=== PATIENT | female | born 1990 | race Two or more races ===

== ENCOUNTER 2016-07-27 01:48 | Emergency (ER) | payer MEDICAID ==
[~2016-07-27] VITALS: Ht 167.6 cm; Wt 99.8 kg
[2016-07-27 02:01] VITALS: BP 115/73
== END 2016-07-27 06:43 | disposition left against medical advice (07) ==
LOC: ER 01:51
DX: M79.605 Pain in left leg (principal); Z53.21 Procedure and treatment not carried out due to patient leaving prior to being seen by health care provider; W57.XXXA Bitten or stung by nonvenomous insect and other nonvenomous arthropods, initial encounter; Y93.89 Activity, other specified; Y99.8 Other external cause status; Y92.89 Other specified places as the place of occurrence of the external cause

== ENCOUNTER 2016-08-01 22:27 | Emergency (ER) | payer MEDICAID ==
[~2016-08-01] VITALS: Ht 167.6 cm; Wt 99.8 kg
[2016-08-01 22:53] VITALS: BP 122/75
[2016-08-02 01:27] LABS: Urine Bilirubin Negative (Negative); Urine Blood Negative /uL (Negative); Urine Ca Oxalate Crystal MOD (None Seen); Urine Color Yellow (Yellow); Urine Glucose Normal (Normal); Urine Ketone Negative (Negative); Urine Mucus FEW (None Seen); Urine Nitrite Negative (Negative); Urine RBC 1 /hpf (0 - 4); Urine Squamous Epithelial Cell MOD /hpf (<5)
== END 2016-08-02 03:08 | disposition left against medical advice (07) ==
LOC: ER 22:32
DX: M79.602 Pain in left arm (principal); Z53.21 Procedure and treatment not carried out due to patient leaving prior to being seen by health care provider
CPT/HCPCS: 81001; 81025

== ENCOUNTER 2017-01-29 12:16 | Emergency (ER) | payer MEDICAID ==
[~2017-01-29] VITALS: Ht 167.6 cm; Wt 104.3 kg
[2017-01-29 14:48] VITALS: BP 125/75
[2017-01-29 15:50] LABS: Urine Bacteria FEW /hpf (None Seen); Urine Blood Negative /uL (Negative); Urine Specific Gravity 1.013 (1.001-1.035); Urine Sperm PRESENT /hpf (None Seen); Urine WBC <1 /hpf (0 - 5)
== END 2017-01-29 17:27 | disposition home or self-care (01) ==
LOC: ER 12:16
DX: O26.891 Other specified pregnancy related conditions, first trimester (principal); R10.9 Unspecified abdominal pain; Z3A.01 Less than 8 weeks gestation of pregnancy
CPT/HCPCS: 36415; 76801; 81001; 84702

== ENCOUNTER 2023-09-21 19:19 | Inpatient (IN) | payer MEDICAID ==
[~2023-09-21] VITALS: Ht 167.6 cm; Wt 104.0 kg
[2023-09-21 20:28] LABS: Urine Bacteria None Seen /hpf (None Seen)
[2023-09-21 20:32] LABS: Monocytes # (auto) 0.8 10 ^3/uL (0-1.3)
[2023-09-21 20:34] LABS: Basophils # (auto) 0.1 10 ^3/uL (0-0.2); Basophils % (auto) 0.6 % (0.0-2.0); Eosinophils # (auto) 0.5 10 ^3/uL (0-0.8); Eosinophils % (auto) 5.3 % (0.0-7.0); Hematocrit 36.4 % (36.0-46.0); Hemoglobin 11.8 g/dL (12.2-16.2); Lymphocytes # (auto) 2.2 10 ^3/uL (0.4-5.4); Lymphocytes % (auto) 26.1 % (10.0-50.0); Mean Corpuscular Hgb Conc. 32.5 g/dL (32.0-36.0); Mean Corpuscular Volume 76.8 fL (80.0-100.0); Monocytes % (auto) 9.3 % (0.0-12.0); Neutrophils % (auto) 58.7 % (37.0-80.0); Nucleated Red Blood Cells % 0.1 %; Red Blood Cells 4.73 10^6/uL (4.0-5.20); White Blood Cell 8.6 10^3/uL (4.4-10.8)
[2023-09-21 20:45] LABS: Chloride 107 mmol/L (98-107); Potassium 4.1 mmol/L (3.5-5.1); Sodium 138 mmol/L (136-145)
[2023-09-21 20:46] LABS: Anion Gap 2 (5-15); Calcium 9.2 mg/dL (8.7-10.4); Carbon Dioxide 29 mmol/L (20-30)
[2023-09-21 20:49] LABS: Urine Blood Negative /uL (Negative); Urine Clarity Turbid (Clear); Urine Color Light-Yellow (Yellow); Urine Hyaline Cast FEW /lpf (0 - 2); Urine Mucus FEW (None Seen); Urine Protein, UAD Negative (Negative); Urine Specific Gravity 1.028 (1.001-1.035); Urine Urobilinogen Normal (Negative); Urine WBC 8 /hpf (0 - 5); Urine pH 5.5 (5.0-9.0)
[2023-09-21 20:51] LABS: BUN/Creatinine Ratio 9.9 (10.0-20.0); Blood Urea Nitrogen 9 mg/dL (9-23); Glucose 81 mg/dL (74-106)
[2023-09-21 21:11] LABS: Lipase 49 U/L (12-53)
[2023-09-21 21:25] VITALS: PULSE 89; RESP 16; O2SAT 97
[2023-09-21] MEDS: HYDROcodone-ACET 10/325MG TAB PO ONE (21:28)
[2023-09-21] MEDS: HYDROmorphone HCL 2 MG/ML VL/or syr IM ONE (23:29)
[2023-09-22] MEDS ORDERED: MORPHINE SULFATE INJ 2 MG/ml SYRG IV PRN ×2 (00:15)
[2023-09-22] MEDS ORDERED: DOCUSATE SOD 100 MG CAP PO PRN (00:15)
[2023-09-22] MEDS ORDERED: ACETAMINOPHEN 325 MG TAB PO PRN (00:15)
[2023-09-22] MEDS ORDERED: NITROGLYCERIN 0.4 MG SL TAB SL PRN (00:15)
[2023-09-22] MEDS ORDERED: ONDANSETRON HCL 4 MG/2 ML VIAL IV PRN (00:15)
[2023-09-22] MEDS: D5W/SOD CHLO 0.9% 1,000 ML IV SCH (02:39)
[2023-09-22 07:29] VITALS: PULSE 80; RESP 16; O2SAT 97
[2023-09-22] MEDS: HYDROcodone-ACET 5/325MG TAB PO PRN (07:45)
[2023-09-22 11:35] LABS: Basophils # (auto) 0 10 ^3/uL (0-0.2); Eosinophils # (auto) 0.3 10 ^3/uL (0-0.8); Monocytes # (auto) 0.5 10 ^3/uL (0-1.3); Neutrophils # (auto) 4.2 10 ^3/uL (1.6-8.6); Nucleated Red Blood Cells % 0.1 %; Red Cell Distribution Width 17.1 % (11.8-14.3)
[2023-09-22 11:37] LABS: Basophils % (auto) 0.4 % (0.0-2.0); Eosinophils % (auto) 3.7 % (0.0-7.0); Hematocrit 37.5 % (36.0-46.0); Hemoglobin 11.8 g/dL (12.2-16.2); Lymphocytes # (auto) 1.7 10 ^3/uL (0.4-5.4); Lymphocytes % (auto) 25.8 % (10.0-50.0); Mean Corpuscular Hemoglobin 24.4 pg (28.0-32.0); Mean Corpuscular Hgb Conc. 31.6 g/dL (32.0-36.0); Mean Corpuscular Volume 77.1 fL (80.0-100.0); Monocytes % (auto) 8.1 % (0.0-12.0); Red Blood Cells 4.86 10^6/uL (4.0-5.20); White Blood Cell 6.7 10^3/uL (4.4-10.8)
[2023-09-22 11:53] LABS: Albumin 3.8 g/dL (3.2-4.8); Alkaline Phosphatase 71 U/L (46-116); Anion Gap 0 (5-15); Aspartate Aminotransferase < 8 U/L (13-40); Bilirubin, Total 0.4 mg/dL (0.2-1.0); Blood Urea Nitrogen 6 mg/dL (9-23); Calcium 8.9 mg/dL (8.7-10.4); Carbon Dioxide 29 mmol/L (20-30); Chloride 107 mmol/L (98-107); Glucose 91 mg/dL (74-106); Sodium 136 mmol/L (136-145)
[2023-09-22 11:54] LABS: INR 1.03 (0.9-1.15); Partial Thromboplastin Time 29.3 SEC (24.5-34.5); Prothrombin Time 10.9 sec (9.3-11.8); Total Protein 6.3 g/dL (5.7-8.2)
[2023-09-22 11:56] LABS: Alanine Aminotransferase < 9 U/L (7-40)
[2023-09-22 17:00] VITALS: BP 121/76; PULSE 67; RESP 19; TEMP 97.9; O2SAT 100
[2023-09-22 17:30] VITALS: BP 121/76; PULSE 78; RESP 18; TEMP 97.9; O2SAT 100
[2023-09-22 21:00] VITALS: BP 116/79; PULSE 79; RESP 16; TEMP 98.4; O2SAT 99
[2023-09-23 05:00] VITALS: BP 96/59; PULSE 63; RESP 16; TEMP 97.6; O2SAT 99
[2023-09-23 05:50] LABS: Basophils # (auto) 0 10 ^3/uL (0-0.2); Eosinophils # (auto) 0.3 10 ^3/uL (0-0.8); Hemoglobin 12.3 g/dL (12.2-16.2); Monocytes % (auto) 8.7 % (0.0-12.0); Neutrophils # (auto) 3.7 10 ^3/uL (1.6-8.6); Red Cell Distribution Width 16.7 % (11.8-14.3)
[2023-09-23 05:54] LABS: Basophils % (auto) 0.3 % (0.0-2.0); Eosinophils % (auto) 4.2 % (0.0-7.0); Hematocrit 37.5 % (36.0-46.0); Lymphocytes # (auto) 1.8 10 ^3/uL (0.4-5.4); Lymphocytes % (auto) 28.3 % (10.0-50.0); Mean Corpuscular Hemoglobin 25.1 pg (28.0-32.0); Mean Corpuscular Hgb Conc. 32.9 g/dL (32.0-36.0); Mean Corpuscular Volume 76.3 fL (80.0-100.0); Monocytes # (auto) 0.6 10 ^3/uL (0-1.3); Neutrophils % (auto) 58.5 % (37.0-80.0); Red Blood Cells 4.91 10^6/uL (4.0-5.20); White Blood Cell 6.4 10^3/uL (4.4-10.8)
[2023-09-23 06:07] LABS: Alkaline Phosphatase 69 U/L (46-116); Anion Gap 7 (5-15); Calcium 8.8 mg/dL (8.7-10.4); Carbon Dioxide 24 mmol/L (20-30); Chloride 107 mmol/L (98-107); Potassium 3.8 mmol/L (3.5-5.1); Sodium 138 mmol/L (136-145)
[2023-09-23 06:08] LABS: Blood Urea Nitrogen 6 mg/dL (9-23); Glucose 91 mg/dL (74-106)
[2023-09-23 06:09] LABS: Albumin 3.9 g/dL (3.2-4.8); Aspartate Aminotransferase 8 U/L (13-40)
[2023-09-23 06:10] LABS: Bilirubin, Total 0.5 mg/dL (0.2-1.0); Total Protein 6.5 g/dL (5.7-8.2)
[2023-09-23 06:22] LABS: Alanine Aminotransferase < 9 U/L (7-40)
[2023-09-23 08:30] VITALS: RESP 14
== END 2023-09-23 09:45 | disposition left against medical advice (07) | DRG 254 ==
LOC: ER 19:19 → OVERFLOW 09-22 00:11 → WEST WING 09-22 17:17
PROVIDERS: ADMIT Nurse Practitioner Family; ATTEND Nurse Practitioner Family
DX: K43.6 Other and unspecified ventral hernia with obstruction, without gangrene (principal); N17.0 Acute kidney failure with tubular necrosis; D50.9 Iron deficiency anemia, unspecified; Z53.29 Procedure and treatment not carried out because of patient's decision for other reasons; E66.9 Obesity, unspecified; F12.90 Cannabis use, unspecified, uncomplicated; Z79.899 Other long term (current) drug therapy; Z88.0 Allergy status to penicillin; Z68.37 Body mass index [BMI] 37.0-37.9, adult
CPT/HCPCS: 36415; 74176; 80048; 80053; 81001; 83690; 84702; 85025; 85610; 85730; 96372; G0378; J7042

== ENCOUNTER 2024-02-06 23:15 | Emergency (ER) | payer MEDICAID ==
[~2024-02-06] VITALS: Ht 167.6 cm; Wt 104.0 kg
[2024-02-06] MEDS: MORPHINE SULFATE INJ 2 MG/ml SYRG IM ONE (23:47)
[2024-02-06] MEDS: ONDANSETRON ODT 4 MG TAB PO ONE (23:48)
--- NOTE | 2024-02-07 00:13 | DVH ---
XY R 4TH FINGER XRAY, INDICATION: RIGHT FOURTH DIGIT CRUSH INJURY TECHNICAL DATA: Frontal view of the right hand and lateral and oblique views of the right ring finger were obtained. COMPARISON: None Findings/ IMPRESSION: Comminuted fracture at the distal phalanx of the 4th digit with associated soft tissue injury.
[2024-02-07] MEDS ORDERED: HYDR-4902 PO (00:52)
--- NOTE | 2024-02-07 00:54 | ED.PDOC ---
Musculoskeletal HPI Comments 33-year-old female complaining of right hand 4th digit finger pain. Patient states she was smashed her finger on the trailer of her car. Patient states she tried to pull her finger out and the nail ripped. Bleeding controlled upon arrival. Chief Complaint: Upper Extremity Time Seen by MD: 23:24 Primary Care Provider: KOLTON Reviewed Notes: Nurses Notes Allergies: Coded Allergies: Penicillins (Unverified Allergy, Unknown, 05/17/14) Home Meds Active Scripts Hydrocodone-Acetaminophen (Hydrocodone Bitartrate/AC 5-325 mg) 1 Tab Tab, 1 TAB PO TID PRN, #24 TAB Prov:PLATAGONSALO PULLER OVER 02/07/24 Information Source: Patient Mode of Arrival: Wheelchair Past Medical History PAST MEDICAL HISTORY: Denies Surgical History: Denies all surgeries FEATURES REPORTER History: No Pertinent FEATURES REPORTER History Family History Family History: Unknown Social History Smoker: Non-Smoker Alcohol: Denies ETOH Use Drugs: Denies Drug Use Constitutional: denies: chills, diaphoresis, fatigue, fever, malaise, sweats, weakness, others EENTM: denies: blurred vision, double vision, ear bleeding, ear discharge, ear drainage, ear pain, ear ringing, eye pain, eye redness, hearing loss, mouth pain, mouth swelling, nasal discharge, nose bleeding, nose congestion, nose pain, photophobia, tearing, throat pain, throat swelling, voice changes, others Respiratory: denies: cough, hemoptysis, orthopnea, SOB at rest, shortness of breath, SOB with excertion, stridor, wheezing, others Cardiovascular: denies: chest pain, dizzy spells, diaphoresis, Dyspnea on exertion, edema, irregular heart beat, left arm pain, lightheadedness, palpitations, PND, syncope, others Gastrointestinal: denies: abdomen distended, abdominal pain, blood streaked bowels, constipated, diarrhea, dysphagia, difficulty swallowing, hematemesis, melena, nausea, poor appetite, poor fluid intake, rectal bleeding, rectal pain, vomiting, others Genitourinary: denies: abnormal vagina bleeding, burning, dyspareunia, dysuria, flank pain, frequency, hematuria, incontinence, pain, , vagina discharge, urgency, others Neurological: denies: dizziness, fainting, headache, left sided numbness, left sided weakness, numbness, paresthesia, pre-existing deficit, right sided numbness, right sided weakness, seizure, speech problems, tingling, tremors, weakness, others Musculoskeletal: denies: back pain, gout, joint pain, joint swelling, muscle pain, muscle stiffness, neck pain, others Integumetry: reports: wounds (Crush injury to right hand 4th digit fingertip); denies: bruises, change in color, change in hair/nails, dryness, laceration, lesions, lumps, rash, others Allergic/Immunocompromised: denies: Difficulty Healing, Frequent Infections, Hives, Itching, others Physical Exam General Appearance: No Apparent Distress, Normal HEENT: Normal ENT Inspection, Pharynx Normal, TMs Normal Neck: Full Range of Motion, Non-Tender, Normal, Normal Inspection Respiratory: Chest Non-Tender, Lungs Clear, No Accessory Muscle Use, No Respiratory Distress, Normal Breath Sounds Cardiovascular: No Edema, No JVD, No Murmur, No Gallop, Normal Peripheral Pulses, Regular Rate/Rhythm Breast Exam: Deferred Gastrointestinal: No Organomegaly, Non Tender, No Pulsatile Mass, Normal Bowel Sounds, Soft Genitalia: Deferred Pelvic: Deferred Rectal: Deferred Extremities: No calf tenderness, Normal capillary refill, Normal inspection, Normal range of motion, Non-tender, No pedal edema Musculoskeletal : Apperance: Normal Neurologic: Alert, heavy antiarmor weapons infantryman II-XII nml as Tested, No Motor Deficits, Normal Affect, Normal Mood, No Sensory Deficits Cerebellar Function: Normal Reflexes: Normal Skin: Dry, Normal Color, Warm, Wounds (Avulsion of the right hand 4th digit finger nail. Laceration noted on the pad of the finger.) Lymphatic: No Adenopathy Was a procedure done? Was a procedure done?: Yes Sedation Sedation?: No Laceration Repair : Location Right hand 4th digit finger tip Length 2cm Anesthetic: Lidocaine, Digital nerve block Laceration Repair Wound Comple: epidermis/dermis repair Laceration Repair: Number of sutures (3), Size (4-0), Nylon, Bacitracin, Non-adherent gauze, Gauze Informed consent obtained: Yes Risks, benefits, and alternati: Yes Differential Diagnosis EXT Differential Diagnosis: Fracture, Sprain, Neurovascular injury X-Ray, Labs, Meds, VS Vital Signs Date Time Temp Pulse Resp B/P (MAP) Pulse Ox O2 Delivery O2 Flow Rate FiO2 02/06/24 23:47 102 18 145/113 02/06/24 23:25 98.1 102 18 145/113 (124) 97 Current Medications Medications (Trade) Dose Ordered Sig/Madya Route Start Time Stop Time Status Last Admin Morphine Sulfate 4 mg ONCE ONCE IM 02/06/24 23:45 02/06/24 23:46 DC 02/06/24 23:47 Ondansetron HCl (Zofran Po) 4 mg ONCE ONCE PO 02/06/24 23:45 02/06/24 23:46 DC 02/06/24 23:48 X-Ray, Labs, Meds, VS Comment Imaging: X-rays and CT scans were reviewed and interpreted by this provider, comminuted fracture of the right 4th digit distal tip.. Pending radiology review. Laboratory: Labs reviewed and interpreted by this provider. No significant abnormalities noted. Patient has prior medical visits reviewed. Med reconciliation performed Vital signs reviewed Patient placed in a frog splint. Bulky dressing applied. Time of 1ST Reevaluation: 00:54 Reevaluation 1ST: Improved Patient Education/Counseling: Diagnosis, Treatment, Need For Follow Up (Follow up for wound recheck in two days. Follow up in the next 7-10 days for suture removal) Family Education/Counseling: No Family Present Departure 1 Departure Time of Disposition: 00:50 Impression: Primary Impression: Crush injury to finger Qualified Codes: S67.10XA - Crushing injury of unspecified finger(s), initial encounter Disposition: HOME / SELF CARE / HOMELESS Condition: Fair e-Prescriptions Hydrocodone-Acetaminophen (Hydrocodone Bitartrate/AC 5-325 mg) 1 Tab Tab 1 TAB PO TID PRN, #24 TAB Prov: GONSALO PLATA 02/07/24 Discharged With: Self Critical Care Note Critical Care Time?: No Stability Stability form required: No Heart Score Heart Score: Heart Score Response (Comments) Value History N/A 0 EKG N/A 0 Age N/A 0 Risk Factors N/A 0 Troponin N/A 0 Total 0 GONSALO PLATA Feb 07, 2024 00:54
[2024-02-07 01:59] VITALS: BP 148/88; PULSE 98; RESP 16; TEMP 98.6; O2SAT 98
== END 2024-02-07 02:00 | disposition home or self-care (01) ==
LOC: ER 23:15
DX: S62.634A Displaced fracture of distal phalanx of right ring finger, initial encounter for closed fracture (principal); Z88.0 Allergy status to penicillin; Z79.899 Other long term (current) drug therapy; W23.0XXA Caught, crushed, jammed, or pinched between moving objects, initial encounter; Y93.89 Activity, other specified; Y92.89 Other specified places as the place of occurrence of the external cause; Y99.8 Other external cause status
CPT/HCPCS: 12001; 29130; 73140; 96372; 99283; J2270; Q0162